=== PATIENT | male | born 1945 | race Caucasian/White ===

== ENCOUNTER 2025-05-20 12:35 | Outpatient (CLI) | payer MEDICARE | END 2025-05-20 12:36 | disposition home or self-care (01) | LOC: CSHWCC 12:35 | PROVIDERS: ATTEND Nurse Practitioner Family | DX: E11.621 Type 2 diabetes mellitus with foot ulcer (principal); L97.511 Non-pressure chronic ulcer of other part of right foot limited to breakdown of skin; L97.521 Non-pressure chronic ulcer of other part of left foot limited to breakdown of skin; C61 Malignant neoplasm of prostate; C34.00 Malignant neoplasm of unspecified main bronchus; Z72.0 Tobacco use | CPT/HCPCS: 11042; 97597; G0463; 99213 ==

== ENCOUNTER 2025-05-27 10:16 | Outpatient (CLI) | payer MEDICARE | END 2025-05-27 10:17 | disposition home or self-care (01) | LOC: CSHWCC 10:16 | PROVIDERS: ATTEND Nurse Practitioner Family | DX: E11.621 Type 2 diabetes mellitus with foot ulcer (principal); L97.511 Non-pressure chronic ulcer of other part of right foot limited to breakdown of skin; L97.521 Non-pressure chronic ulcer of other part of left foot limited to breakdown of skin; C61 Malignant neoplasm of prostate; C34.00 Malignant neoplasm of unspecified main bronchus; Z72.0 Tobacco use | CPT/HCPCS: 11042 ==

== ENCOUNTER 2025-06-03 13:08 | Outpatient (CLI) | payer MEDICARE | END 2025-06-03 13:09 | disposition home or self-care (01) | LOC: CSHWCC 13:08 | PROVIDERS: ATTEND Nurse Practitioner Family | DX: E11.621 Type 2 diabetes mellitus with foot ulcer (principal); L97.511 Non-pressure chronic ulcer of other part of right foot limited to breakdown of skin; L97.521 Non-pressure chronic ulcer of other part of left foot limited to breakdown of skin; C61 Malignant neoplasm of prostate; C34.00 Malignant neoplasm of unspecified main bronchus; Z72.0 Tobacco use | CPT/HCPCS: 11042 ==

== ENCOUNTER 2025-06-17 13:06 | Outpatient (CLI) | payer MEDICARE | END 2025-06-17 13:07 | disposition home or self-care (01) | LOC: CSHWCC 13:06 | PROVIDERS: ATTEND Nurse Practitioner Family | DX: E11.621 Type 2 diabetes mellitus with foot ulcer (principal); L97.521 Non-pressure chronic ulcer of other part of left foot limited to breakdown of skin; C61 Malignant neoplasm of prostate; C34.00 Malignant neoplasm of unspecified main bronchus; Z72.0 Tobacco use | CPT/HCPCS: 11042 ==

== ENCOUNTER 2025-06-24 12:59 | Outpatient (CLI) | payer MEDICARE | END 2025-06-24 13:00 | disposition home or self-care (01) | LOC: CSHWCC 12:59 | PROVIDERS: ATTEND Nurse Practitioner Family | DX: E11.621 Type 2 diabetes mellitus with foot ulcer (principal); L97.521 Non-pressure chronic ulcer of other part of left foot limited to breakdown of skin; C61 Malignant neoplasm of prostate; C34.00 Malignant neoplasm of unspecified main bronchus; Z72.0 Tobacco use | CPT/HCPCS: 11042; 99406; G0463; 99213 ==

== ENCOUNTER 2025-07-22 12:54 | Outpatient (CLI) | payer MEDICARE | END 2025-07-22 12:55 | disposition home or self-care (01) | LOC: CSHWCC 12:54 | PROVIDERS: ATTEND Nurse Practitioner Family | DX: E11.621 Type 2 diabetes mellitus with foot ulcer (principal); L97.521 Non-pressure chronic ulcer of other part of left foot limited to breakdown of skin; C61 Malignant neoplasm of prostate; C34.00 Malignant neoplasm of unspecified main bronchus; Z72.0 Tobacco use | CPT/HCPCS: 11042 ==

== ENCOUNTER 2025-07-29 14:14 | Outpatient (CLI) | payer MEDICARE | END 2025-07-29 14:15 | disposition home or self-care (01) | LOC: CSHWCC 14:14 | PROVIDERS: ATTEND Nurse Practitioner Family | DX: E11.621 Type 2 diabetes mellitus with foot ulcer (principal); L97.521 Non-pressure chronic ulcer of other part of left foot limited to breakdown of skin; C61 Malignant neoplasm of prostate; C34.00 Malignant neoplasm of unspecified main bronchus; Z72.0 Tobacco use | CPT/HCPCS: 11042 ==

== ENCOUNTER 2025-08-12 12:54 | Outpatient (CLI) | payer MEDICARE | END 2025-08-12 12:55 | disposition home or self-care (01) | LOC: CSHWCC 12:54 | PROVIDERS: ATTEND Nurse Practitioner Family | DX: L89.616 Pressure-induced deep tissue damage of right heel (principal); E11.621 Type 2 diabetes mellitus with foot ulcer; L97.522 Non-pressure chronic ulcer of other part of left foot with fat layer exposed; C61 Malignant neoplasm of prostate; C34.00 Malignant neoplasm of unspecified main bronchus; Z72.0 Tobacco use | CPT/HCPCS: 15275; Q4186 ==

== ENCOUNTER 2025-08-27 12:45 | Outpatient (CLI) | payer MEDICARE | END 2025-08-27 12:46 | disposition home or self-care (01) | LOC: CSHWCC 12:45 | PROVIDERS: ATTEND Nurse Practitioner Family | DX: L89.616 Pressure-induced deep tissue damage of right heel (principal); E11.621 Type 2 diabetes mellitus with foot ulcer; L97.522 Non-pressure chronic ulcer of other part of left foot with fat layer exposed; C61 Malignant neoplasm of prostate; C34.00 Malignant neoplasm of unspecified main bronchus; Z72.0 Tobacco use | CPT/HCPCS: 11042; 99214; 99406; G0463 ==